=== PATIENT | female | born 1945 | race Two or more races ===

== ENCOUNTER 2017-01-05 11:54 | Inpatient (IN) | payer MEDICARE ==
[~2017-01-05] VITALS: Ht 149.9 cm; Wt 87.5 kg
[~2017-01-05 11:54] MED LIST: AMLO5TAB2 PO; AZIT250T6 PO; IBUP-1060 PO; LEVO750T31 PO; LINA5TAB PO; LISI-334 PO; OMEP20CA9 PO; VENTOLIN HFA18 GM INH
[2017-01-05] MEDS ORDERED: IPRATRPIUM/ALBUTEROL 0.5/2.5MG 3 ML NEBU. NEB ONE (13:00)
[2017-01-05 13:02] LABS: BASO % 0 % (0-3); EOS % 1 % (0-3); HEMATOCRIT 40.9 % (36.0-47.0); HEMOGLOBIN 13.3 g/dL (12.0-15.5); LYMPH # 1.2 x10^3/uL (1.0-4.8); LYMPH % 15 % (24-48); MEAN CORPUSCULAR HEMOGLOBIN 27 pg (25-35); MEAN CORPUSCULAR HGB CONC 33 g/dL (31-37); MEAN CORPUSCULAR VOLUME 84 fL (79-100); MONO % 3 % (0-9); NEUT % 80 % (31-73); PLATELET COUNT 195 x10^3/uL (140-400); RED BLOOD COUNT 4.87 x10^6/uL (3.50-5.40); RED CELL DISTRIBUTION WIDTH 14.3 % (11.5-14.5); WHITE BLOOD COUNT 7.9 x10^3/uL (4.0-11.0)
[2017-01-05 13:04] LABS: BILIRUBIN,URINE NEGATIVE (NEG); GLUCOSE,URINE NEGATIVE (NEG); NITRITE,URINE NEGATIVE (NEG); PH,URINE 5.5; PROTEIN,URINE 100 mg/dL (NEG-TRACE); UROBILINOGEN,URINE 0.2 mg/dL (0.2 mg/dL)
[2017-01-05 13:21] LABS: BACTERIA,URINE FEW /HPF (0-FEW); SQUAMOUS EPITHELIAL CELL,UR FEW /LPF
[2017-01-05 13:21] LABS: CALCIUM 9.2 mg/dL (8.5-10.1); CREATININE 0.8 mg/dL (0.6-1.0); GFR 70.7; POTASSIUM 4.4 mmol/L (3.5-5.1)
[2017-01-05 13:26] LABS: ALBUMIN 3.5 g/dL (3.4-5.0); ALBUMIN/GLOBULIN RATIO 0.7 (1.0-1.7); TOTAL BILIRUBIN 0.3 mg/dL (0.2-1.0); TOTAL PROTEIN 8.2 g/dL (6.4-8.2)
--- NOTE | 2017-01-05 13:28 | PHYS DOC ---
Past Medical History Past Medical History: GERD, Hypertension, Hypothyroid Additional Past Medical Histor: bipap at HS Past Surgical History: Appendectomy, Cholecystectomy Alcohol Use: None Drug Use: None Adult General Chief Complaint Chief Complaint: COUGH HPI HPI Patient is a 71 year old female who presents with complaint of shortness of breath and cough. Patient has been having symptoms for the past 2 days. Patient went to see her primary physician yesterday and was treated for bronchitis. Patient started on Levaquin and prednisone. Patient awoke with worsening symptoms today including headaches, subjective fever, chills, bodyaches, and productive cough. Patient states that her cough is productive of yellow sputum. Patient rates her discomfort currently is 8 out of 10. Patient states that she has had worsening dyspnea on exertion. Patient denies any history of COPD. Patient denies any nausea, vomiting, or diarrhea. Review of Systems Review of Systems Constitutional: Fever, chills, bodyaches [] Eyes: Denies change in visual acuity, redness, or eye pain [] HENT: Denies nasal congestion or sore throat [] Respiratory: Productive cough, shortness of breath [] Cardiovascular: Denies chest pain or edema [] GI: Denies abdominal pain, nausea, vomiting, bloody stools or diarrhea [] : Denies dysuria or hematuria [] Musculoskeletal: Myalgias, back pain [] Integument: Denies rash or skin lesions [] Neurologic: Headache, denies focal weakness or sensory changes [] Current Medications Current Medications Current Medications Medications (Trade) Dose Ordered Sig/Shadia Start Time Stop Time Status Last Admin Dose Admin Albuterol/ Ipratropium (Duoneb) 6 ml 1X ONCE 01/05/17 13:00 01/05/17 13:01 DC 01/05/17 12:55 6 ML Allergies Allergies Allergies Coded Allergies Type Severity Reaction Last Updated Verified Iodinated Contrast Media - Oral and Allergy Intermediate 03/16/14 Yes Penicillins Allergy Intermediate Rash 03/16/14 Yes acetaminophen Allergy Intermediate 05/12/16 Yes Physical Exam Physical Exam Constitutional: Alert, afebrile, appears in moderate discomfort. [] HENT: Normocephalic, atraumatic, bilateral external ears normal, oropharynx moist, no oral exudates, nose normal. [] Eyes: PERRLA, EOMI, conjunctiva normal, no discharge. [] Neck: Normal range of motion, no tenderness, supple, no stridor. [] Cardiovascular:Heart rate regular rhythm, no murmur [] Lungs & Thorax: Moderately restricted air movement bilaterally, expiratory wheezes bilaterally, no rales [] Abdomen: Bowel sounds normal, soft, no tenderness, no masses, no pulsatile masses. [] Skin: Warm, dry, no erythema, no rash. [] Back: No tenderness, no CVA tenderness. [] Extremities: No tenderness, no cyanosis, no clubbing, ROM intact, no edema. [] Neurologic: Alert and oriented X 3, normal motor function, normal sensory function, no focal deficits noted. [] Current Patient Data Vital Signs Vital Signs Date Time Temp Pulse Resp B/P Pulse Ox O2 Delivery O2 Flow Rate FiO2 01/05/17 13:44 88 21 184/86 93 Room Air 01/05/17 12:25 98.4 98.4 Lab Values Laboratory Tests Test 01/05/17 12:45 01/05/17 12:50 Urine Collection Type Unknown Urine Color Yellow Urine Clarity Clear Urine pH 5.5 Urine Specific Burson 1.010 Urine Protein 100mg/dL (NEG-TRACE) Urine Glucose (UA) Negativemg/dL (NEG) Urine Ketones (Stick) Negativemg/dL (NEG) Urine Blood Large (NEG) Urine Nitrite Negative (NEG) Urine Bilirubin Negative (NEG) Urine Urobilinogen Dipstick 0.2mg/dL (0.2 mg/dL) Urine Leukocyte Esterase Negative (NEG) Urine RBC 6-10/HPF (0-2) Urine WBC 1-4/HPF (0-4) Urine Squamous Epithelial Cells Few/LPF Urine Bacteria Few/HPF (0-FEW) Influenza Type A Antigen Negative (NEGATIVE) Influenza Type B Antigen Negative (NEGATIVE) White Blood Count 7.9x10^3/uL (4.0-11.0) Red Blood Count 4.87x10^6/uL (3.50-5.40) Hemoglobin 13.3g/dL (12.0-15.5) Hematocrit 40.9% (36.0-47.0) Mean Corpuscular Volume 84fL (79-100) Mean Corpuscular Hemoglobin 27pg (25-35) Mean Corpuscular Hemoglobin Concent 33g/dL (31-37) Red Cell Distribution Width 14.3% (11.5-14.5) Platelet Count 195x10^3/uL (140-400) Neutrophils (%) (Auto) 80% (31-73) H Lymphocytes (%) (Auto) 15% (24-48) L Monocytes (%) (Auto) 3% (0-9) Eosinophils (%) (Auto) 1% (0-3) Basophils (%) (Auto) 0% (0-3) Neutrophils # (Auto) 6.3x10^3uL (1.8-7.7) Lymphocytes # (Auto) 1.2x10^3/uL (1.0-4.8) Monocytes # (Auto) 0.3x10^3/uL (0.0-1.1) Eosinophils # (Auto) 0.1x10^3/uL (0.0-0.7) Basophils # (Auto) 0.0x10^3/uL (0.0-0.2) Sodium Level 141mmol/L (136-145) Potassium Level 4.4mmol/L (3.5-5.1) Chloride Level 104mmol/L (98-107) Carbon Dioxide Level 23mmol/L (21-32) Anion Gap 14 (6-14) Blood Urea Nitrogen 17mg/dL (7-20) Creatinine 0.8mg/dL (0.6-1.0) Estimated GFR (Cockcroft-Gault) 70.7 BUN/Creatinine Ratio 21 (6-20) H Glucose Level 193mg/dL (70-99) H Calcium Level 9.2mg/dL (8.5-10.1) Total Bilirubin 0.3mg/dL (0.2-1.0) Aspartate Amino Transferase (AST) 25U/L (15-37) Alanine Aminotransferase (ALT) 33U/L (14-59) Alkaline Phosphatase 98U/L (46-116) Creatine Kinase 98U/L (26-192) Creatine Kinase MB (Mass) 1.3ng/mL (0.0-3.6) Creatine Kinase MB Relative Index 1.3% (0-4) Troponin I Quantitative < 0.017ng/mL (0.000-0.055) DQ-Dre-V-Type Natriuretic Peptide 35pg/mL (0-124) Total Protein 8.2g/dL (6.4-8.2) Albumin 3.5g/dL (3.4-5.0) Albumin/Globulin Ratio 0.7 (1.0-1.7) L Laboratory Tests 01/05/17 12:50 Laboratory Tests 01/05/17 12:50 EKG EKG Interpreted by me: Heart rate 85, sinus rhythm, normal intervals, normal axis and in no acute ST/T-wave abnormalities present [] Radiology/Procedures Radiology/Procedures [facility] [address] [place] [address] IMAGING REPORT Signed PATIENT: PAULETTE ROSADO ACCOUNT: [id number] : 1945 LOCATION: ER AGE: 71 SEX: F EXAM STATUS: REG ER ORD. PHYSICIAN: MORENA THURSTON MD REASON: cough, shortness of breath PROCEDURE: CHEST PA & LATERAL PA and lateral chest radiographs 01/05/2017 Clinical history: Cough for 2 days with shortness of breath. PA and lateral digital radiographs of the chest were obtained. Comparison study is dated 05/15/2016. The cardiac silhouette is borderline enlarged. Atherosclerotic calcification of the thoracic aorta is seen. The thoracic aorta is mildly tortuous. Elevation of the right hemidiaphragm is noted. No acute pulmonary infiltrate is seen. No pleural effusion or pneumothorax is noted. Degenerative changes are seen involving the thoracic spine. A surgical clip is seen within the right upper quadrant of the abdomen consistent with a cholecystectomy. Impression: No acute abnormality is seen. DICTATED and SIGNED BY: JASON ROQUE MD DATE: 01/05/17 9017 CC: AUNG MUNIZ MD; MORENA THURSTON MD ~ [] Course & Med Decision Making Course & Med Decision Making Pertinent Labs and Imaging studies reviewed. (See chart for details) Patient was treated with DuoNeb treatments in the emergency department. On reevaluation the patient continues to display increased work of breathing and oxygen saturations were at 88%. The patient will require admission to the hospital for continued treatment of her reactive airway disease with hypoxia. Patient's chest x-ray was negative for pneumonia. I spoke with Dr. Hoffman who is on-call for Dr. Muniz. He accepted care of patient in hospital. Dragon Disclaimer Dragon Disclaimer This electronic medical record was generated, in whole or in part, using a voice recognition dictation system. Departure Departure Impression: Primary Impression: Acute respiratory distress Additional Impressions: Hypoxia Diabetes mellitus Disposition: 09 ADMITTED INPATIENT Admitting Physician: Edward Hoffman Condition: GUARDED Referrals: AUNG MUNIZ MD (PCP) Problem Qualifiers Additional Impressions: Diabetes mellitus Diabetes mellitus type: type 2 Diabetes mellitus complication status: with hyperglycemia Diabetes mellitus buttermaker insulin use: unspecified mcc insulin use status Qualified Code: E11.65 - Type 2 diabetes mellitus with hyperglycemia MORENA THURSTON MD Jan 05, 2017 13:28
[2017-01-05 13:35] LABS: CKMB INDEX 1.3 % (0-4); CKMB MASS 1.3 ng/mL (0.0-3.6)
[2017-01-05 13:43] LABS: OBC FLU VALID
--- NOTE | 2017-01-05 13:52 | RAD ---
PA and lateral chest radiographs 01/05/2017 Clinical history: Cough for 2 days with shortness of breath. PA and lateral digital radiographs of the chest were obtained. Comparison study is dated 05/15/2016. The cardiac silhouette is borderline enlarged. Atherosclerotic calcification of the thoracic aorta is seen. The thoracic aorta is mildly tortuous. Elevation of the right hemidiaphragm is noted. No acute pulmonary infiltrate is seen. No pleural effusion or pneumothorax is noted. Degenerative changes are seen involving the thoracic spine. A surgical clip is seen within the right upper quadrant of the abdomen consistent with a cholecystectomy. Impression: No acute abnormality is seen.
--- NOTE | 2017-01-05 14:07 | EKG ---
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
[2017-01-05] MEDS ORDERED: FENTANYL PF 100 MCG/2 ML VIAL. IV PRN (15:45)
[2017-01-05] MEDS ORDERED: ONDANSETRON PF 4 MG/2 ML VIAL. IV PRN (15:45)
[2017-01-05 16:10] VITALS: BP 140/68
[2017-01-05] MEDS ORDERED: DEXTROSE 50% 25 GM / 50ML DISP.SYRIN. IV PRN (17:30)
[2017-01-05] MEDS: IV NORMAL SALINE 1000ML BAG 1,000 ML IV SCH (18:03)
[2017-01-05] MEDS: methylPREDNISolone SOD SUCC PF 40 MG/ML VIAL. IV SCH (18:03)
--- NOTE | 2017-01-05 18:10 | ACF ---
Admission Forms Criteria GENERAL ADMISSION CRITERIA (Place 'X' for any and all applicable criteria): Admission is indicated for ANY ONE of the following: [ ]I. Hemodynamic instability as indicated by ANY ONE of the following(1)(2) (3)(4)(5): [ ]a) Vital sign abnormality not readily corrected by appropriate treatment within 12 to 24 hours indicated by ANY ONE of the following: [ ]i) Hypotension [ ]ii) Symptomatic Tachycardia unresponsive to treatment (eg , analgesia, fluids, sedation as indicated) [ ]iii) Orthostatic vital sign changes unresponsive to treatment (eg, fluids) [ ]b) Vital sign abnormality that is severe indicated by ANY ONE of the following: [ ]i) Inadequate perfusion indicated by ANY ONE of the following: [ ]1) Lactic acidosis (greater than 2 mmol/L) [ ]2) New abnormal capillary refill (greater than 3 seconds) [ ]3) Other metabolic acidosis (arterial pH less than 7.35) not otherwise explained [ ]4) Reduced urine output [ ]5) Altered mental status [ ]6) Myocardial Ischemia [ ]v) Mean arterial pressure[A] less than 60 mm Hg [ ]vi) Mean arterial pressure[A] less than 70 mm Hg after 30 minutes of appropriate treatment (eg, fluid resuscitation) [ ]vii) IV inotropic or vasopressor medication required to maintain adequate blood pressure or perfusion [ ]viii) Sustained heart rate greater than 120 beats per minute in adult or child 6 years or older[B]] [ ]II. Hypertension requiring inpatient treatment as indicated by ANY ONE of the following(6)(7)(8): [ ]a) SBP greater than 220 mm Hg or DBP greater than 120 mm Hg despite treatment [ ]b) SBP greater than 140 mm Hg or DBP greater than 100 mm Hg with evidence of acute end organ damage as indicated by ANY ONE of the following: [ ]i) Encephalopathy [ ]ii) Acute renal failure as indicated by new onset of ANY ONE of the following(9)(10)(11)(12)(13): [ ]1) A 3-fold rise in serum creatinine from baseline [ ]2) Serum creatinine greater than 4 mg/dL ( 354 micromoles/L) with acute rise greater than 0.5 mg/dL (44.2 micromoles/L) [ ]3) Reduction of more than 75% in estimated glomerular filtration rate from baseline [ ]4) Estimated glomerular filtration rate less than 35 mL/min/1.73m2 (0.59 mL/sec/1.73m2) in child up to 18 years of age [ ]5) Cessation of urine output indicated by ALL of the following: [ ]A. Adequate volume status [ ]B. Inadequate urine output as indicated by ANY ONE of the following: [ ]a. Urine output less than 0.3 mL/kg/hr for 24 hours [ ]b. Anuria (urine output less than 0.1 mL/kg/hr) for 12 hours [ ]iii) Aortic dissection [ ]iv) Myocardial ischemia [ ]v) Left ventricular heart failure [ ]vi) Retinal hemorrhage [ ]vii) Other significant finding [ ]c) Hypertension in child requiring inpatient treatment as indicated by ALL of the following(14)(15)(16): [ ]i) Outpatient treatment not effective, not available, or not appropriate [ ]ii) SBP or DBP greater than 95th percentile for age [ ]iii) Evidence of acute end organ damage as indicated by ANY ONE of the following: [ ]1) Altered mental status [ ]2) Acute renal failure as indicated by new onset of ANY ONE of the following(9)(10)(11)(12)(13): [ ]A. A 3-fold rise in serum creatinine from baseline [ ]B. Serum creatinine greater than 4 mg/dL (354 micromoles/L) with acute rise greater than 0.5 mg/dL (44.2 micromoles/L) [ ]C. Reduction of more than 75% in estimated glomerular filtration rate from baseline [ ]D. Estimated glomerular filtration rate less than 35 mL/min/1.73m2 (0.59 mL/sec/1.73m2)in child up to 18 years of age [ ]E. Cessation of urine output indicated by ALL of the following: [ ]a. Adequate volume status [ ]b. Inadequate urine output as indicated by ANY ONE of the following: [ ]1) Urine output less than 0.3 mL/kg/hr for 24 hours [ ]2) Anuria (urine output less than 0.1 mL/kg/hr) for 12 hours [ ]3) Severe headache [ ]4) Visual disturbance [ ]5) Retinal hemorrhage [ ]6) Other significant finding [ ]III. Acute cardiac or peripheral ischemia as indicated by ANY ONE of the following: [ ]a) Acute coronary syndrome(17)(18) [ ]b) Acute peripheral ischemia (eg, pulseless, cool, mottled, or cyanotic extremity)(19) [ ]IV. Cardiac arrhythmias or findings of immediate concern indicated by ANY ONE of the following(20)(21): [ ]a) Heart rhythms that are inherently dangerous or unstable indicated by ANY ONE of the following(22)(23)(24): [ ]i) Resuscitated ventricular fibrillation or cardiac arrest [ ]ii) Ventricular escape rhythm [ ]iii) Sustained ventricular tachycardia (30 seconds or more of ventricular rhythm at greater than 100 beats per minute) [ ]iv) Nonsustained ventricular tachycardia and ANY ONE of the following: [ ]1) Suspected cardiac ischemia as cause or consequence of ventricular tachycardia [ ]2) In setting of acute myocarditis [ ]b) Unstable cardiac conduction defects indicated by ANY ONE of the following(24)(25)(26): [ ]i) Type II second-degree atrioventricular block [ ]ii) Third-degree atrioventricular block [ ]iii) New-onset left bundle branch block with suspected myocardial ischemia [ ]c) Any heart rhythm and ANY ONE of the following(22)(23)(27)(28)( 29): [ ] i) Continuous long-term ECG monitoring needed (eg, initiation of drug requiring monitoring for more than 24 hours) [ ] ii) Patient has automatic implanted cardioverter defibrillator that is repeatedly firing, malfunctioning, or in need of immediate adjustment of settings beyond the scope of ambulatory or observation care. [ ]d) Heart rhythms of concern due to ANY ONE of the following: [ ]i) Hypotension [ ]ii) Respiratory distress [ ]iii) Association with other significant symptoms (eg, bradycardia with syncope or ongoing dizziness, supraventricular tachycardia with chest pain) (27)(28) (30) [ ] V. Severe heart failure as indicated by ANY ONE of the following ( 31)(32): [ ]a) Respiratory distress [ ]b) Hypotension [ ]c) Anasarca (refractory to outpatient therapy) [ ]d) Cardiac arrhythmias of immediate concern [ ]e) Myocardial ischemia [X]. Respiratory abnormalities, including ANY ONE of the following(33)(34) (35)(36): [ ]a) Respiratory rate greater than 30 breaths per minute unresponsive to treatment [A] [X]b) New saturation of arterial oxygen less than 90% [ ]c) New partial pressure of carbon dioxide greater than 44 mm Hg ( 5.9 kPa) [ ]d) Supplemental oxygen or respiratory treatments needed that are new or not performable at other levels of care [ ]e) New-onset cyanosis [ ]f) Inability to protect airway [ ]g) Chronic lung disease with severe deterioration (not responsive to emergency and observation care treatment as appropriate) as indicated by ANY ONE of the following(34)(36 ): [ ]i) SaO2 5% below baseline in patient with chronic hypoxemia [ ]ii) New requirement for supplemental oxygen to keep SaO2 at baseline or acceptable level [ ]iii) Required supplemental oxygen performable only in acute inpatient setting [ ]iv) Severe airflow or ventilation abnormalities [ ]v) Previously mobile patient unable to walk between rooms [ ]vi Inability to eat or sleep due to dyspnea [ ]vii) Rapid rate of exacerbation onset [ ]viii) Altered mental status ]VII. Severe airflow or ventilation abnormalities (not responsive to emergency and observation care treatment as appropriate) as indicated by ANY ONE of the following(33)(34)(35)(37): [ ]a) PCO2 greater than 42 mm Hg (5.6 kPa) and pH less than 7.35 (new ) [ ]b) Documented PCO2 increased more than 5 mm Hg (0.7 kPa) from disease baseline [ ]c) Airflow measurements [B] less than 60% of previous best or predicted (eg, peak expiratory flow rate less than 300 L/minute) despite intensive emergent treatment [C] [ ]d) Required respiratory treatments that are performable only in acute inpatient setting [ ]VIII. Impending or actual respiratory arrest ( Also use Respiratory Failure GRG for severe respiratory disease and long-term mechanical ventilation patients) [ ]IX. Neurologic abnormalities, including ANY ONE of the following: [ ]a) New findings that suggest ANY ONE of the following: [ ]i) [employer] infection(38) [ ]ii) Cerebral bleeding, ischemia, or vasospasm(39)(40) [ ]iii) Increased intracranial pressure, hydrocephalus, or cerebral edema(41)(42)(43) [ ]iv) Spinal cord injury(44) [ ]b) Uncontrolled seizures(45) [ ]c) New-onset coma (eg, Geraldine coma scale score less than 9) or unexplained abnormal mental status (eg, Geraldine coma scale score less than 14) [D](41)(46)(47) [ ]X. New-onset severe neurologic findings requiring inpatient care; examples include(42)(48)(49): [ ]a) Papilledema [ ]b) Cerebral edema [ ]c) Mass effect on CT scan [ ]XI. Suspected acute intra-abdominal process with peritoneal signs, abdominal mass, or similar findings (50)(51)(52) [ ]XII. Severe physiologic disorder remaining after emergency or observation level care (as appropriate) as indicated by ANY ONE of the following (53): [ ]a) Significant dehydration [ ]b) Diabetic ketoacidosis [ ]c) Hyperglycemic hyperosmolar state (eg, osmolality greater than 320 mOsm/kg (mmol/kg) [ ]d) Hypoglycemia [ ]e) Other (new) acid-base disorder with pH less than 7.35 or greater than 7.5(54) [ ]f) Thyroid storm (55) [ ]g) Myxedema coma (55) [ ]XIII. Abdominal abnormalities with ANY ONE of the following(56)(57): [ ]a) Absent bowel sounds with complete ileus [ ]b) Signs of intestinal obstruction or peritonitis [E] [ ]c) Nausea and vomiting that cannot be controlled with outpatient or observation care [ ]XIV. Acute renal failure as indicated by new onset of ANY ONE of the following(9)(10)(11)(12)(13): [ ]a) A 3-fold rise in serum creatinine from baseline [ ]b) Serum creatinine greater than 4 mg/dL (354 micromoles/L) with acute rise greater than 0.5 mg/dL (44.2 micromoles/L) [ ]c) Reduction of more than 75% in estimated glomerular filtration rate from baseline [ ]d) Estimated glomerular filtration rate less than 35 mL/min/ 1.73m2 (0.59 mL/sec/1.73m2) in child up to 18 years of age [ ]e) Cessation of urine output indicated by ALL of the following: [ ]i) Adequate volume status [ ]ii) Inadequate urine output as indicated by ANY ONE of the following: [ ]1) Urine output less than 0.3 mL/kg/hr for 24 hours [ ]2) Anuria (urine output less than 0.1 mL/kg/hr) for 12 hours [ ]XV. Significant uremic complications as indicated by ANY ONE of the following(58)(59)(60): [ ]a) Outpatient therapy is ineffective or not feasible for ANY ONE of the following: [ ]i) Severe heart failure [ ]ii) Severehypertension [ ]iii) Pleural effusion [ ]iv) Pericarditis or pericardial effusion [ ]b) Cardiac arrhythmias of immediate concern [ ]c) Intractable nausea or vomiting [ ]d) Recurrent seizures [ ]e) Encephalopathy [ ]f) Bleeding abnormalities (eg, platelet dysfunction) with active (eg, gastrointestinal) bleeding [ ]g) Dialysis indicated before long-term access or ambulatory arrangements can be made [ ]h) Significant metabolic or electrolyte abnormalities (eg, severe acidosis or hyperkalemia) [ ]XVI. High fever or other high-risk infection situation as indicated by ANY ONE of the following(61)(62)(63)(64): [ ]a) Outpatient and observation care antimicrobial treatment unavailable, not effective, or not appropriate [ ]b) Documented bacteremia [ ]c) Temperature greater than 40.5 degrees C (104.9 degrees F) ( oral) [ ]d) Temperature greater than 39.5 degrees C (103.1 degrees F) ( oral) or less than 36 degrees C (96.8 degrees F) (rectal) that does not respond to e treatment and observation care [ ] XVII. Temperature less than 95 degrees F (35 degrees C)(rectal)(65) [ ] XVIII. Severe nutritional abnormalities as indicated by ALL of the following (66)(67): [ ]a) Inability to tolerate or establish sufficient oral or other enteral nutrition in outpatient setting [ ]b) Parenteral nutrition regimen need that must be implemented on inpatient basis [ ] XIX. Severe electrolyte abnormalities indicated by ALL of the following(68) (69)(70): [ ]a) Electrolytes and associated findings are not as expected for patient baseline or acceptable treatment effects. [ ]b) Severe abnormalities indicated by ANY ONE of the following: [ ]i) Sodium less than 130 mEq/L (mmol/L) (new) [ ]ii)Sodium less than 135 mEq/L (mmol/L) with ANY ONE of the following: [ ]1) Uncorrectable (to near normal or chronic baseline) after trial of outpatient and emergency treatment [ ]2) Altered mental status [ ]3) Seizures [ ]4) Severe medical etiology requiring inpatient management (eg, heart failure, hypovolemia) [ ]iii) Sodium greater than 155 mEq/L (mmol/L) [ ]iv) Sodium greater than 150 mEq/L (mmol/L) with ANY ONE of the following: [ ]1) Uncorrectable (to near normal or chronic baseline) with outpatient and emergency treatment [ ]2) Altered mental status [ ]3) Seizures [ ]4) Severe medical etiology (eg, hypovolemia, diabetes insipidus) [ ]v) Potassium less than 2.5 mEq/L (mmol/L) despite outpatient and emergency treatment [ ]vi) Potassium less than 3 mEq/L (mmol/L) with ANY ONE of the following: [ ]1) Weakness [ ]2) Cardiac abnormality (eg, arrhythmia, conduction disturbance) [ ]3) Cardiac ischemia [ ]4) Ileus [ ]5) Ongoing medical cause requiring inpatient management (eg, acute renal wasting or SIADH) [ ]6) Other severe symptoms [ ]vii) Potassium greater than 6.5 mEq/L (mmol/L) [ ]viii) Potassium greater than 5 mEq/L (mmol/L) with ANY ONE of the following: [ ]1) Uncorrectable (to near normal or chronic baseline) with outpatient and emergency treatment [ ]2) Severe ECG findings [F] [ ]3) Acute worsening of renal failure (creatinine greater than 2.5 mg/dL (221 micromoles/L) or significant elevation for age and size) [ ]4) Severe weakness [ ]5) Severe medical etiology (eg, hemolysis, infection, drug overdose) [ ]ix) Calcium less than 7 mg/dL (1.75 mmol/L) despite outpatient and emergency treatment (72) [ ]x) Calcium less than 8 mg/dL (2 mmol/L) with significant symptoms or findings; examples include(72): [ ]1) Altered mental status [ ]2) Muscle spasms [ ]3) Seizures [ ]4) Breathing difficulty [ ]5) Cardiac abnormality (eg, arrhythmia or conduction disturbance) [ ]xi) Calcium greater than 14 mg/dL (3.5 mmol/L)(72) [ ]xii) Calcium greater than 12 mg/dL (3 mmol/L) with ANY ONE of the following(72): [ ]1) Uncorrectable (to near normal or chronic baseline) with outpatient and emergency treatment [ ]2) Significant dehydration or hypovolemia as indicated by ALL of the following(70)(73)(74): [ ]A. Not resolved with initial treatments [ ]B. Clinically significant dehydration as indicated by ANY ONE of the following: [ ]a. Vomiting refractory to outpatient treatment (ie, precluding oral rehydration) [ ]b. Inability to drink [ ]c. Hypernatremia or other electrolyte abnormality unable to be corrected with outpatient and emergency treatment [ ]d. Failure to remain hydrated with outpatient therapy [ ]e. Reduced urine output [ ]f. Hypotension [ ]g. Serious cause for dehydration requiring acute hospitalization (eg, bowel obstruction, increased intracranial pressure, infectious cause) [ ]h. Child with ANY ONE of the following(75): [ ]1) Severe abdominal tenderness [ ]2) Adequate care not available at home [ ]3) Severe dehydration ( greater than 9% loss of body weight) [ ]4) Significant symptoms or findings; examples include: [ ]A. Altered mental status [ ]B. Cardiac abnormality (eg, arrhythmia, conduction disturbance) [ ]C. Malignant etiology requiring inpatient treatment [ ]xiii) Phosphorus less than 1 mg/dL (0.32 mmol/L) [ ]xiv) Phosphorus less than 1.5 mg/dL (0.48 mmol/L) with ANY ONE of the following: [ ]1) Patient unresponsive to outpatient and emergency treatment [ ]2) Significant symptoms or findings; examples include: [ ]A. Weakness [ ]B. Altered mental status [ ]C. Breathing difficulty [ ]D. Seizures [ ]E. Rhabdomyolysis [ ]xv) Phosphorus greater than 10 mg/dL (3.2 mmol/L) [ ]xvi) Phosphorus greater than 4.5 mg/dL (1.45 mmol/L) (new) with ANY ONE of the following: [ ]1) Severe medical etiology (eg, crush injury, acute renal failure) [ ]2) Associated hypocalcemia with significant findings; examples include: [ ]A. Neurologic symptoms [ ]B. Altered mental status [ ]C. Muscle spasms [ ]D. Seizures [ ]E. Breathing difficulty [ ]F. Cardiac abnormality (eg, arrhythmia, conduction disturbance) [ ]xvii) Magnesium less than 1 mg/dL (0.41 mmol/L) [ ]xviii) Magnesium less than 1.5 mg/dL (0.62 mmol/L) with ANY ONE of the following: [ ]1) Patient unresponsive to outpatient and emergency treatment [ ]2) Associated hypocalcemia with significant findings; examples include: [ ]A. Altered mental status [ ]B. Muscle spasms [ ]C. Seizures [ ]D. Breathing difficulty [ ]E. Cardiac abnormality (eg, arrhythmia , conduction disturbance) [ ]3) Associated hypokalemia (potassium less than 3 mEq/L (mmol/L)) with risk of arrhythmia [ ]xix) Magnesium greater than 4 mEq/L (2 mmol/L) [ ]xx) Magnesium greater than 2.5 mEq/L (1.25 mmol/L) with significant symptoms or findings; examples include: [ ]1) Weakness [ ]2) Altered mental status [ ]3) Cardiac abnormality (eg, arrhythmia, conduction disturbance) [ ]4) Breathing difficulty [ ]5) Severe medical etiology (eg, renal failure, hypovolemia) [ ]xxi) Uric acid greater than 20 mg/dL (1190 micromoles/L)(76) [ ]xxii) Uric acid greater than 8 mg/dL (476 micromoles/L) with significant symptoms or findings of tumor lysis syndrome; examples include(76): [ ]1) Creatinine greater than 1.5 times upper limit of normal [ ]2) Cardiac abnormality (eg, arrhythmia, conduction disturbance) [ ]3) Seizure [ ]XX. Acute blood loss causing significant abnormality as indicated by ANY ONE of the following(77)(78): [ ]a) Hemoglobin less than 10 g/dL (100 g/L) (not baseline) [ ]b) Hematocrit less than 30% (0.30) (not baseline) [ ]c) Repeat hematocrit decreased more than 2% (0.02) [ ]d) Uncontrolled bleeding [ ]XXI. Severe anemia indicated by ANY ONE of the following(78)(79): [ ]a) Altered mental status [ ]b) Chest pain [ ]c) Exertional dyspnea [ ]d) Syncope [ ]e) Other findings suggesting inadequate perfusion [ ]f) Treatment with transfusion or volume replacement is ineffective at resolving ANY ONE of the following [G]: [ ]i) Tachycardia for age [ ]ii) Orthostatic vital sign changes as indicated by ANY ONE of the following(80): [ ]1) Fall in SBP of 20 mm Hg or more 1 to 3 minutes after patient sits or stands from recumbent position [ ]2) Fall in DBP of 10 mm Hg or more 1 to 3 minutes after patient sits or stands from recumbent position [ ]XXII. High-risk low platelet count as indicated by ANY ONE of the following( 81)(82): [ ]a) Severe or life-threatening bleeding (eg, intracranial, major gastrointestinal, or extensive mucosal bleeding), with any reduced platelet count [ ]b) Platelet count less than 20,000/mm3 (20 x109/L) with any active bleeding [ ]c) Platelet count less than 10,000/mm3 (10 x109/L) with minor purpura or petechiae [ ]d) Platelet count less than 5000/mm3 (5 x109/L) [ ]e) Low platelet count with hemolytic anemia [ ]XXIII. Disseminated intravascular coagulation(77)(83) [ ]XXIV. Severe adverse drug or systemic toxin reaction requiring inpatient treatment; examples include(84)(85): [ ]a) Serotonin syndrome(86) [ ]b) Neuroleptic malignant syndrome(86) [ ]c) Cholinergic syndrome with severe symptoms (eg, bronchorrhea, weakness, mental status changes, seizures) [ ]d) Sympathetic syndrome with severe symptoms (eg, seizures, mental status changes, cardiac dysrhythmias) [ ]e) Anticholinergic syndrome [ ]XXV. Severe pain requiring acute inpatient management as indicated by ALL of the following (87)(88)(89): [ ]a) Continuous or frequent (eg, every 2 to 4 hours) parenteral analgesics required [H] [ ]b) Rapid improvement expected from treatment or acute intervention (eg, surgery, anesthesia procedure) [ ]XXVI.Severe behavioral health issues judged unmanageable at a lower level of care (eg, residential) in a patient who is ANY ONE of the following(91) [ ]a) Acutely suicidal [ ]b) A danger to self (eg, self-mutilating or suicidal behavior) [ ]c) A danger to others (eg, assaultive or homicidal behavior) [ ]d) Incapacitated because of grave disability (eg, inability to provide for self at lower level of care) (92) [ ]XXVII. Inpatient monitoring needed; examples include(1)(3)(87)(93)(94)(95)(96 ): [ ]a) Vital signs, neurologic signs, or vascular checks more frequently than every 4 hours [ ]b) Cardiac or respiratory monitoring beyond the scope (eg, over 24 hours) of observation care [ ]c) Pulmonary artery catheter monitoring [ ]d) Suspected compartment syndrome(97) (98) [ ]e) Cerebral bleeding, hydrocephalus, or vasospasm monitoring [ ]f) Increased intracranial pressure or cerebral edema monitoring [ ]g) monitoring [ ]XXVIII. Treatment requiring inpatient care; examples include: [ ]a) IV fluid to replace significant ongoing losses (greater than 3 L/m2 per day)(53) [ ]b) High concentration oxygen (greater than 40%)(33)(99)(100) [ ]c) Frequent respiratory therapy (more frequently than every 4 hours) to maintain airflow rates greater than 60% of baseline(33)(99)(100) [ ]d) Epidural analgesia(87) [ ]e) IV anticoagulation, vasoactive, or antiarrhythmic medication(19 )(23) [ ]f) Acute thrombolytics (generally require 24 hours of observation )(101)(102) [ ]XXIX. Emergency procedures needed; examples include: [ ]a) Emergency inpatient surgery [ ]b) Temporary pacemaker placement(103) [ ]c) Chest tube placement with active evacuation (eg, suction, drainage)(104) [ ]d) Emergent cardioversion(105) [ ]e) Emergent cardiac or vascular procedures (eg, cardiac catheterization, angioplasty) (17)(18) [ ]f) Emergent dialysis access placement and institution(10)(106) [ ]g) Emergent pericardiocentesis(107) [ ]h) Emergent plasmapheresis or leukapheresis(83) [ ]i) Emergent tracheostomy The original [employer] content created by [employer] has been revised. The portions of the content which have been revised are identified through the use of italic text or in bold, and [facility] [employer] has neither reviewed nor approved the modified material. All other unmodified content is copyright [employer]. Please see references footnoted in the original [employer] edition 2016 Admission Criteria Met?: Yes LIGIA ELIAS Jan 05, 2017 18:10
[2017-01-05] MEDS: INSULIN ASPART 300 UNITS/3 ML INSULN.PEN SQ SCH (18:37)
[2017-01-05 19:00] VITALS: BP 156/85
[2017-01-05] MEDS ORDERED: CHOL10003 PO (20:14)
[2017-01-05] MEDS ORDERED: ASPI-482 PO (20:14)
[2017-01-05] MEDS: IPRATRPIUM/ALBUTEROL 0.5/2.5MG 3 ML NEBU. NEB SCH (20:29)
[2017-01-05] MEDS: LISINOPRIL 20 MG TABLET PO SCH (21:00)
[2017-01-05] MEDS: AMLODIPINE BESYLATE 5 MG TABLET PO SCH (21:00)
[2017-01-05] MEDS ORDERED: INSULIN ASPART 300 UNITS/3 ML INSULN.PEN SQ ONE (22:00)
[2017-01-05 23:00] VITALS: BP 165/77
[2017-01-06] VITALS (7 sets, daily range): BP systolic 159–189; BP diastolic 68–86
[2017-01-06] MEDS: methylPREDNISolone SOD SUCC PF 40 MG/ML VIAL. IV SCH ×3 (00:28→17:23)
[2017-01-06] MEDS: IV NORMAL SALINE 1000ML BAG 1,000 ML IV SCH (02:00)
[2017-01-06 03:45] LABS: BASO % 0 % (0-3); EOS % 0 % (0-3); HEMATOCRIT 36.7 % (36.0-47.0); HEMOGLOBIN 12.1 g/dL (12.0-15.5); LYMPH # 1.2 x10^3/uL (1.0-4.8); LYMPH % 21 % (24-48); MEAN CORPUSCULAR HEMOGLOBIN 27 pg (25-35); MEAN CORPUSCULAR HGB CONC 33 g/dL (31-37); MEAN CORPUSCULAR VOLUME 82 fL (79-100); MONO % 3 % (0-9); NEUT % 76 % (31-73); PLATELET COUNT 194 x10^3/uL (140-400); RED BLOOD COUNT 4.47 x10^6/uL (3.50-5.40); WHITE BLOOD COUNT 5.4 x10^3/uL (4.0-11.0)
[2017-01-06 03:53] LABS: CALCIUM 8.9 mg/dL (8.5-10.1); CREATININE 0.9 mg/dL (0.6-1.0); GFR 61.7; POTASSIUM 4.2 mmol/L (3.5-5.1)
[2017-01-06] MEDS: IPRATRPIUM/ALBUTEROL 0.5/2.5MG 3 ML NEBU. NEB SCH ×4 (07:37→19:27)
--- NOTE | 2017-01-06 08:16 | PDOC ---
Provider Note Provider Note [id number] SARAH SALGADO MD Jan 06, 2017 08:16
[2017-01-06] MEDS ORDERED: INSULIN DETEMIR 300 UNITS/3 ML INSULN.PEN. SQ ONE (08:30)
[2017-01-06] MEDS: LINAGLIPTIN 5 MG TABLET PO SCH (08:59)
[2017-01-06] MEDS: AMLODIPINE BESYLATE 5 MG TABLET PO SCH (08:59)
[2017-01-06] MEDS: LEVOFLOXACIN 500 MG TABLET PO SCH (08:59)
[2017-01-06] MEDS: PANTOPRAZOLE 40 MG TABLET. PO SCH (09:00)
[2017-01-06] MEDS: CHOLECALCIFEROL (VITAMIN D3) 1,000 UNIT TABLET PO SCH (09:00)
[2017-01-06] MEDS: ASPIRIN ENTERIC COATED 81 MG TABLET.DR. PO SCH (09:00)
[2017-01-06] MEDS: LISINOPRIL 20 MG TABLET PO SCH (09:00)
--- NOTE | 2017-01-06 09:08 | HP ---
ADMIT DATE: 01/05/2017 CHIEF COMPLAINT: Difficulty breathing. HISTORY OF PRESENT ILLNESS: A 71-year-old female, patient of Dr. Pryor and Dr. Muniz, with history of diabetes, who came in with increasing cough and sputum production over the last 3-4 days. She was seen in Dr. Muniz's office and put on prednisone and Levaquin the day prior to admission and failed to improve. Chest x-ray did not show any acute changes. Laboratory studies were unremarkable. She is feeling somewhat better at this time. MEDICATIONS: Include Tradjenta for diabetes and blood pressure medications. ALLERGIES: SHE IS ALLERGIC TO PENICILLIN AND TYLENOL. SOCIAL HISTORY: Nonsmoker, , not physically active, nondrinker. FAMILY HISTORY: Unremarkable. REVIEW OF SYSTEMS: No other complaints. OBJECTIVE: ENT: All within normal limits. NECK: No masses, nodes or thyroid enlargement. LUNGS: Very faint expiratory wheezes. No tachypnea or prolonged expiratory phase. No cough. CARDIOVASCULAR: Regular rate. No irregular beat, murmur or tachycardia. ABDOMEN: Soft, obese, benign and nontender. EXTREMITIES: Good pedal and radial pulses. No edema. No joint or skin lesions or clubbing. NEUROLOGIC: Physiologic, nonfocal, oriented x 4. ASSESSMENT: Asthma exacerbation, likely underlying secondary bronchitis, viral or bacterial is unclear. Type 2 diabetes, level of control unclear, last A1c 8.5 eight months ago. PLAN: Continue steroids at a lower dose. Oral Levaquin and respiratory treatments for now. SARAH SALGADO MD DR: ALYCIA/varinder JOB#: [id number] / [id number]
[2017-01-06] MEDS: INSULIN ASPART 300 UNITS/3 ML INSULN.PEN SQ SCH ×3 (09:10→17:26)
--- NOTE | 2017-01-06 11:15 | PDOC ---
Provider Note Provider Note dictated VERNON OCAMPO MD Jan 06, 2017 11:15
--- NOTE | 2017-01-06 11:41 | CONS ---
DATE OF CONSULTATION: ATTENDING PHYSICIAN: Dr. Edward Hoffman. REASON FOR CONSULTATION: Cough. HISTORY OF PRESENT ILLNESS: The patient is a 71-year-old female who is morbidly obese and has obstructive sleep apnea on home CPAP. She came to the hospital complaining of cough, which has been occasionally productive of light colored sputum. This has been going on for 3-4 days. No obvious fevers. She was placed on oral prednisone and oral Levaquin and she feels improved. She was seen in the Emergency Room as a result, she was hospitalized. I have reviewed the patient's chest x-ray shows chronically elevated right hemidiaphragm without any acute infiltrates. She states she did smoke during her teenage years for about 25 years before quitting many years ago. She said she was told that she was wheezing in the ER. PAST MEDICAL HISTORY: Significant for history of morbid obesity and obstructive sleep apnea on home CPAP. PAST SURGICAL HISTORY: No recent surgeries. ALLERGIES: IODINATED CONTRAST, ORAL AND IV PENICILLINS ____. REVIEW OF SYSTEMS: Twelve-point system obtained. Pertinent positives discussed in history of present illness, otherwise noncontributory. All systems that were negative were reviewed as well. MEDICATIONS: Reviewed as listed in the MRAD including IV steroids, DuoNebs. PHYSICAL EXAMINATION: VITAL SIGNS: Blood pressure 184/86 which is high, afebrile, pulse ox 95% on 2 liters. NECK: Supple. LUNGS: Diminished breath sounds with few rhonchi. CARDIOVASCULAR: Regular rate and rhythm. ABDOMEN: Soft, nontender. EXTREMITIES: With no pitting edema. LABORATORY DATA: Reviewed. Influenza was negative. BUN 17, creatinine 0.9. White cell count 5.4, hemoglobin 12.1. IMPRESSION: 1. Acute bronchitis, but no definite consolidation seen on the chest x-ray. 2. 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 No further workup is needed. 3. Possible adult onset reactivate airway disease with mild exacerbation, triggered by viral bronchitis. RECOMMENDATIONS: 1. Continue with present bronchodilators. 2. Taper steroids. 3. Continue empiric antibiotic. 4. Cough suppressants. 5. If the cough does not resolved after few weeks, then one should consider the effect of lisinopril which currently she is on. She could be discharged in the next 24 hours. VERNON OCAMPO MD DR: Dariana JOB#: [id number] / [id number] KEYON
[2017-01-06] MEDS ORDERED: INSULIN ASPART 300 UNITS/3 ML INSULN.PEN SQ STA (13:58)
[2017-01-06] MEDS ORDERED: CLONIDINE HCL 0.1 MG TABLET PO PRN (16:30)
[2017-01-06] MEDS ORDERED: CLONIDINE HCL 0.1 MG TABLET PO ONE (16:45)
[2017-01-07 03:17] VITALS: BP 170/80
[2017-01-07] MEDS: LEVOFLOXACIN 500 MG TABLET PO SCH (05:51)
[2017-01-07 07:00] VITALS: BP 154/82
[2017-01-07] MEDS: IPRATRPIUM/ALBUTEROL 0.5/2.5MG 3 ML NEBU. NEB SCH ×4 (07:55→19:51)
[2017-01-07] MEDS: PANTOPRAZOLE 40 MG TABLET. PO SCH (08:10)
[2017-01-07] MEDS: INSULIN ASPART 300 UNITS/3 ML INSULN.PEN SQ SCH (08:13)
[2017-01-07] MEDS: ASPIRIN ENTERIC COATED 81 MG TABLET.DR. PO SCH (08:56)
[2017-01-07] MEDS: AMLODIPINE BESYLATE 5 MG TABLET PO SCH (08:57)
[2017-01-07] MEDS: LISINOPRIL 20 MG TABLET PO SCH (08:58)
[2017-01-07] MEDS: CHOLECALCIFEROL (VITAMIN D3) 1,000 UNIT TABLET PO SCH (08:58)
[2017-01-07] MEDS: LINAGLIPTIN 5 MG TABLET PO SCH (08:58)
--- NOTE | 2017-01-07 08:58 | PDOC ---
PULMONARY PROGRESS NOTES Subjective less cough, feels better Vitals Vital Signs Date Time Temp Pulse Resp B/P Pulse Ox O2 Delivery O2 Flow Rate FiO2 01/07/17 07:57 94 Room Air 01/07/17 03:17 96.3 82 16 170/80 96.3 01/06/17 20:00 2.0 General: Alert, Oriented X4, No acute distress Lungs: Other (decrease bs) Cardiovascular: S1, S2 Abdomen: Soft, Non-tender Extremities: No Edema Skin: Warm Labs Laboratory Tests Test 01/05/17 12:45 01/05/17 12:50 01/05/17 16:23 01/05/17 20:53 Urine Collection Type Unknown Urine Color Yellow Urine Clarity Clear Urine pH 5.5 Urine Specific [place] 1.010 Urine Protein 100mg/dL (NEG-TRACE) Urine Glucose (UA) Negativemg/dL (NEG) Urine Ketones (Stick) Negativemg/dL (NEG) Urine Blood Large (NEG) Urine Nitrite Negative (NEG) Urine Bilirubin Negative (NEG) Urine Urobilinogen Dipstick 0.2mg/dL (0.2 mg/dL) Urine Leukocyte Esterase Negative (NEG) Urine RBC 6-10/HPF (0-2) Urine WBC 1-4/HPF (0-4) Urine Squamous Epithelial Cells Few/LPF Urine Bacteria Few/HPF (0-FEW) Influenza Type A Antigen Negative (NEGATIVE) Influenza Type B Antigen Negative (NEGATIVE) White Blood Count 7.9x10^3/uL (4.0-11.0) Red Blood Count 4.87x10^6/uL (3.50-5.40) Hemoglobin 13.3g/dL (12.0-15.5) Hematocrit 40.9% (36.0-47.0) Mean Corpuscular Volume 84fL (79-100) Mean Corpuscular Hemoglobin 27pg (25-35) Mean Corpuscular Hemoglobin Concent 33g/dL (31-37) Red Cell Distribution Width 14.3% (11.5-14.5) Platelet Count 195x10^3/uL (140-400) Neutrophils (%) (Auto) 80% (31-73) Lymphocytes (%) (Auto) 15% (24-48) Monocytes (%) (Auto) 3% (0-9) Eosinophils (%) (Auto) 1% (0-3) Basophils (%) (Auto) 0% (0-3) Neutrophils # (Auto) 6.3x10^3uL (1.8-7.7) Lymphocytes # (Auto) 1.2x10^3/uL (1.0-4.8) Monocytes # (Auto) 0.3x10^3/uL (0.0-1.1) Eosinophils # (Auto) 0.1x10^3/uL (0.0-0.7) Basophils # (Auto) 0.0x10^3/uL (0.0-0.2) Sodium Level 141mmol/L (136-145) Potassium Level 4.4mmol/L (3.5-5.1) Chloride Level 104mmol/L (98-107) Carbon Dioxide Level 23mmol/L (21-32) Anion Gap 14 (6-14) Blood Urea Nitrogen 17mg/dL (7-20) Creatinine 0.8mg/dL (0.6-1.0) Estimated GFR (Cockcroft-Gault) 70.7 BUN/Creatinine Ratio 21 (6-20) Glucose Level 193mg/dL (70-99) Calcium Level 9.2mg/dL (8.5-10.1) Total Bilirubin 0.3mg/dL (0.2-1.0) Aspartate Amino Transf (AST/SGOT) 25U/L (15-37) Alanine Aminotransferase (ALT/SGPT) 33U/L (14-59) Alkaline Phosphatase 98U/L (46-116) Creatine Kinase 98U/L (26-192) Creatine Kinase MB (Mass) 1.3ng/mL (0.0-3.6) Creatine Kinase MB Relative Index 1.3% (0-4) Troponin I Quantitative < 0.017ng/mL (0.000-0.055) KM-Enr-U-Type Natriuretic Peptide 35pg/mL (0-124) Total Protein 8.2g/dL (6.4-8.2) Albumin 3.5g/dL (3.4-5.0) Albumin/Globulin Ratio 0.7 (1.0-1.7) Glucose (Fingerstick) 232mg/dL (70-99) 298mg/dL (70-99) Test 01/06/17 03:08 01/06/17 07:26 01/06/17 11:53 01/06/17 17:00 White Blood Count 5.4x10^3/uL (4.0-11.0) Red Blood Count 4.47x10^6/uL (3.50-5.40) Hemoglobin 12.1g/dL (12.0-15.5) Hematocrit 36.7% (36.0-47.0) Mean Corpuscular Volume 82fL (79-100) Mean Corpuscular Hemoglobin 27pg (25-35) Mean Corpuscular Hemoglobin Concent 33g/dL (31-37) Red Cell Distribution Width 15.0% (11.5-14.5) Platelet Count 194x10^3/uL (140-400) Neutrophils (%) (Auto) 76% (31-73) Lymphocytes (%) (Auto) 21% (24-48) Monocytes (%) (Auto) 3% (0-9) Eosinophils (%) (Auto) 0% (0-3) Basophils (%) (Auto) 0% (0-3) Neutrophils # (Auto) 4.2x10^3uL (1.8-7.7) Lymphocytes # (Auto) 1.2x10^3/uL (1.0-4.8) Monocytes # (Auto) 0.1x10^3/uL (0.0-1.1) Eosinophils # (Auto) 0.0x10^3/uL (0.0-0.7) Basophils # (Auto) 0.0x10^3/uL (0.0-0.2) Sodium Level 137mmol/L (136-145) Potassium Level 4.2mmol/L (3.5-5.1) Chloride Level 104mmol/L (98-107) Carbon Dioxide Level 24mmol/L (21-32) Anion Gap 9 (6-14) Blood Urea Nitrogen 17mg/dL (7-20) Creatinine 0.9mg/dL (0.6-1.0) Estimated GFR (Cockcroft-Gault) 61.7 Glucose Level 291mg/dL (70-99) Hemoglobin A1c 7.3% (4.8-5.6) Calcium Level 8.9mg/dL (8.5-10.1) Glucose (Fingerstick) 265mg/dL (70-99) 381mg/dL (70-99) 280mg/dL (70-99) Test 01/06/17 20:45 01/07/17 07:26 Glucose (Fingerstick) 303mg/dL (70-99) 271mg/dL (70-99) Laboratory Tests Test 01/06/17 11:53 01/06/17 17:00 01/06/17 20:45 01/07/17 07:26 Glucose (Fingerstick) 381mg/dL (70-99) 280mg/dL (70-99) 303mg/dL (70-99) 271mg/dL (70-99) Medications Active Scripts Medications Dose Route/Sig Days Date Category Vitamin D3 (Cholecalciferol (Vitamin D3)) 1,000 Unit Tablet 1 Tab PO DAILY 01/05/17 Reported Aspir 81 (Aspirin) 81 Mg Tablet.dr 1 Tab PO DAILY 01/05/17 Reported Levaquin (Levofloxacin) 750 Mg Tablet 500 Mg PO DAILY06 05/15/16 Rx Tradjenta (Linagliptin) 5 Mg Tablet 5 Mg PO DAILY 05/15/16 Rx Omeprazole 20 Mg Capsule.dr 1 Cap PO DAILYAC 05/12/16 Reported Amlodipine Besylate 5 Mg Tablet 5 Mg PO DAILY 05/12/16 Reported Lisinopril 20 Mg Tablet 1 Tab PO DAILY 05/12/16 Reported Ibuprofen 800 Mg Tablet 800 Mg PO PRN Q8HRS PRN 05/12/16 Reported Ventolin Hfa Inhaler (Albuterol Sulfate) 18 Gm Hfa.aer.ad 2 Puff INH Q4HRS 05/12/16 Reported Impression . 1. Acute bronchitis, but no definite consolidation seen on the chest x-ray. 2. 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 No further workup is needed. 3. Possible adult onset reactivate airway disease with mild exacerbation, triggered by viral bronchitis. Plan . 1. Continue with present bronchodilators. 2. Taper steroids. 3. Continue empiric antibiotic. 4. Cough suppressants. 5. If the cough does not resolve after few weeks, then one should consider the effect of lisinopril which currently she is on. She could be discharged today VERNON OCAMPO MD Jan 07, 2017 08:58
[2017-01-07] MEDS: methylPREDNISolone SOD SUCC PF 40 MG/ML VIAL. IV SCH ×2 (10:15→17:12)
--- NOTE | 2017-01-07 10:44 | PDOC ---
PROGRESS NOTES Subjective Subjective Pt awake and alert. States breathing is less labored. States she does not want to take any more insulin. Pt states she has been eating and drinking well. Denies n/v/d. Objective Objective Pt awake and alert. NAD. VSS. Afebrile. FSBS elevated. Lungs with exp wheeze throughout. Pt on RA, not requiring supplemental O2. Heart with RRR. No murmurs. Vital Signs Date Time Temp Pulse Resp B/P Pulse Ox O2 Delivery O2 Flow Rate FiO2 01/07/17 08:58 82 170/80 01/07/17 07:57 94 Room Air 01/07/17 07:00 97.5 20 2.0 97.5 Intake and Output 01/07/17 07:00 Intake Total 1500 ml Balance 1500 ml Intake Oral 1500 ml # Voids 7 Assessment Assessment Problems Medical Problems: (1) Acute respiratory distress Status: Acute (2) Diabetes mellitus Status: Acute (3) Hypoxia Status: Acute Plan Plan of Care 1. Acute bronchitis with exaccerbation of asthma -Pulmonology consulting -Pt on Duonebs, SoluMedrol and empiric Levaquin 2. DM, noninsulin dependent -Pt on Trajenta -Hgb A1c 7.3 -FSBS elevated with admission in upper 200s, probable secondary to steroids -Pt refusing Novolog Nursing staff encouraged to begin to mobilize pt. Hopeful for Dc tomorrow am. Comment Review of Relevant I have reviewed the following items jose (where applicable) has been applied. Labs Laboratory Tests Test 01/05/17 12:45 01/05/17 12:50 01/05/17 16:23 01/05/17 20:53 Urine Collection Type Unknown Urine Color Yellow Urine Clarity Clear Urine pH 5.5 Urine Specific [place] 1.010 Urine Protein 100mg/dL (NEG-TRACE) Urine Glucose (UA) Negativemg/dL (NEG) Urine Ketones (Stick) Negativemg/dL (NEG) Urine Blood Large (NEG) Urine Nitrite Negative (NEG) Urine Bilirubin Negative (NEG) Urine Urobilinogen Dipstick 0.2mg/dL (0.2 mg/dL) Urine Leukocyte Esterase Negative (NEG) Urine RBC 6-10/HPF (0-2) Urine WBC 1-4/HPF (0-4) Urine Squamous Epithelial Cells Few/LPF Urine Bacteria Few/HPF (0-FEW) Influenza Type A Antigen Negative (NEGATIVE) Influenza Type B Antigen Negative (NEGATIVE) White Blood Count 7.9x10^3/uL (4.0-11.0) Red Blood Count 4.87x10^6/uL (3.50-5.40) Hemoglobin 13.3g/dL (12.0-15.5) Hematocrit 40.9% (36.0-47.0) Mean Corpuscular Volume 84fL (79-100) Mean Corpuscular Hemoglobin 27pg (25-35) Mean Corpuscular Hemoglobin Concent 33g/dL (31-37) Red Cell Distribution Width 14.3% (11.5-14.5) Platelet Count 195x10^3/uL (140-400) Neutrophils (%) (Auto) 80% (31-73) Lymphocytes (%) (Auto) 15% (24-48) Monocytes (%) (Auto) 3% (0-9) Eosinophils (%) (Auto) 1% (0-3) Basophils (%) (Auto) 0% (0-3) Neutrophils # (Auto) 6.3x10^3uL (1.8-7.7) Lymphocytes # (Auto) 1.2x10^3/uL (1.0-4.8) Monocytes # (Auto) 0.3x10^3/uL (0.0-1.1) Eosinophils # (Auto) 0.1x10^3/uL (0.0-0.7) Basophils # (Auto) 0.0x10^3/uL (0.0-0.2) Sodium Level 141mmol/L (136-145) Potassium Level 4.4mmol/L (3.5-5.1) Chloride Level 104mmol/L (98-107) Carbon Dioxide Level 23mmol/L (21-32) Anion Gap 14 (6-14) Blood Urea Nitrogen 17mg/dL (7-20) Creatinine 0.8mg/dL (0.6-1.0) Estimated GFR (Cockcroft-Gault) 70.7 BUN/Creatinine Ratio 21 (6-20) Glucose Level 193mg/dL (70-99) Calcium Level 9.2mg/dL (8.5-10.1) Total Bilirubin 0.3mg/dL (0.2-1.0) Aspartate Amino Transf (AST/SGOT) 25U/L (15-37) Alanine Aminotransferase (ALT/SGPT) 33U/L (14-59) Alkaline Phosphatase 98U/L (46-116) Creatine Kinase 98U/L (26-192) Creatine Kinase MB (Mass) 1.3ng/mL (0.0-3.6) Creatine Kinase MB Relative Index 1.3% (0-4) Troponin I Quantitative < 0.017ng/mL (0.000-0.055) XU-Rwl-U-Type Natriuretic Peptide 35pg/mL (0-124) Total Protein 8.2g/dL (6.4-8.2) Albumin 3.5g/dL (3.4-5.0) Albumin/Globulin Ratio 0.7 (1.0-1.7) Glucose (Fingerstick) 232mg/dL (70-99) 298mg/dL (70-99) Test 01/06/17 03:08 01/06/17 07:26 01/06/17 11:53 01/06/17 17:00 White Blood Count 5.4x10^3/uL (4.0-11.0) Red Blood Count 4.47x10^6/uL (3.50-5.40) Hemoglobin 12.1g/dL (12.0-15.5) Hematocrit 36.7% (36.0-47.0) Mean Corpuscular Volume 82fL (79-100) Mean Corpuscular Hemoglobin 27pg (25-35) Mean Corpuscular Hemoglobin Concent 33g/dL (31-37) Red Cell Distribution Width 15.0% (11.5-14.5) Platelet Count 194x10^3/uL (140-400) Neutrophils (%) (Auto) 76% (31-73) Lymphocytes (%) (Auto) 21% (24-48) Monocytes (%) (Auto) 3% (0-9) Eosinophils (%) (Auto) 0% (0-3) Basophils (%) (Auto) 0% (0-3) Neutrophils # (Auto) 4.2x10^3uL (1.8-7.7) Lymphocytes # (Auto) 1.2x10^3/uL (1.0-4.8) Monocytes # (Auto) 0.1x10^3/uL (0.0-1.1) Eosinophils # (Auto) 0.0x10^3/uL (0.0-0.7) Basophils # (Auto) 0.0x10^3/uL (0.0-0.2) Sodium Level 137mmol/L (136-145) Potassium Level 4.2mmol/L (3.5-5.1) Chloride Level 104mmol/L (98-107) Carbon Dioxide Level 24mmol/L (21-32) Anion Gap 9 (6-14) Blood Urea Nitrogen 17mg/dL (7-20) Creatinine 0.9mg/dL (0.6-1.0) Estimated GFR (Cockcroft-Gault) 61.7 Glucose Level 291mg/dL (70-99) Hemoglobin A1c 7.3% (4.8-5.6) Calcium Level 8.9mg/dL (8.5-10.1) Glucose (Fingerstick) 265mg/dL (70-99) 381mg/dL (70-99) 280mg/dL (70-99) Test 01/06/17 20:45 01/07/17 07:26 Glucose (Fingerstick) 303mg/dL (70-99) 271mg/dL (70-99) Laboratory Tests Test 01/06/17 11:53 01/06/17 17:00 01/06/17 20:45 01/07/17 07:26 Glucose (Fingerstick) 381mg/dL (70-99) 280mg/dL (70-99) 303mg/dL (70-99) 271mg/dL (70-99) Medications Current Medications Albuterol/ Ipratropium (Duoneb) 6 ml 1X ONCE NEB Last administered on 12:55; Start 01/05/17 at 13:00; Stop 01/05/17 at 13:01; Status DC Ondansetron HCl 4 mg 4 mg PRN Q8HRS PRN IV NAUSEA/VOMITING; Start 01/05/17 at 15 :45; Stop 01/06/17 at 15:44; Status DC Sodium Chloride (Iv Sodium Chloride 0.9% 1000ml Bag) 1,000 ml @ 100 mls/hr Q10H IV Last administered on 01/06/17 02:00; Start 01/05/17 at 16:00; Stop at 08:14; Status DC Albuterol/ Ipratropium (Duoneb) 3 ml RTQID NEB Last administered on 01/06/17 11 :40; Start 01/05/17 at 16:00; Stop 01/06/17 at 15:59; Status DC Methylprednisolone Sodium Succinate (Solu-Medrol 40mg Vial) 60 mg Q6HRS IV Last administered on 01/06/17 05:21; Start 01/05/17 at 18:00; Stop 01/06/17 at 08: 06; Status DC Fentanyl Citrate (Fentanyl 2ml Vial) 50 mcg PRN Q2HR PRN IV PAIN Last administered on 01/05/17 15:53; Start 01/05/17 at 15:45; Stop 01/06/17 at 15:44; Status DC Insulin Aspart (Novolog) 0-9 UNITS TIDWMEALS SQ Last administered on 01/07/17 08:13; Start 01/05/17 at 18:00 Dextrose 12.5 gm PRN Q15MIN PRN IV SEE COMMENTS; Start 01/05/17 at 17:30 Amlodipine Besylate (Norvasc) 5 mg DAILY PO Last administered on 01/07/17 08:57 ; Start 01/05/17 at 21:00 Aspirin (Ecotrin) 81 mg DAILY PO Last administered on 01/07/17 08:56; Start 01/06/17 at 09:00 Vitamin D (Vitamin D3) 1,000 unit DAILY PO Last administered on 01/07/17 08:58 ; Start 01/06/17 at 09:00 Linagliptin (Tradjenta) 5 mg DAILY PO Last administered on 01/07/17 08:58; Start 01/06/17 at 09:00 Lisinopril (Prinivil) 20 mg DAILY PO Last administered on 01/07/17 08:58; Start 01/05/17 at 21:00 Pantoprazole Sodium (Protonix) 40 mg DAILYAC PO Last administered on 01/07/17 08:10; Start 01/06/17 at 07:30 Insulin Aspart (Novolog) 8 units 1X ONCE SQ Last administered on 01/05/17 21: 45; Start 01/05/17 at 22:00; Stop 01/05/17 at 22:01; Status DC Methylprednisolone Sodium Succinate (Solu-Medrol 40mg Vial) 60 mg BIDAFTMEAL IV Last administered on 01/07/17 10:15; Start 01/06/17 at 18:00 Albuterol/ Ipratropium (Duoneb) 3 ml RTQID NEB Last administered on 01/07/17 07 :55; Start 01/06/17 at 16:00 Levofloxacin (Levaquin) 500 mg DAILY06 PO Last administered on 01/07/17 05:51; Start 01/06/17 at 09:00 Insulin Detemir (Levemir) 20 units 1X ONCE SQ Last administered on 01/06/17 09 :11; Start 01/06/17 at 08:30; Stop 01/06/17 at 08:31; Status DC Insulin Aspart (Novolog) 15 units 1X STAT SQ Last administered on 01/06/17 13: 58; Start 01/06/17 at 13:58; Stop 01/06/17 at 14:03; Status DC Clonidine HCl (Catapres) 0.1 mg 1X ONCE PO Last administered on 01/06/17 17:22 ; Start 01/06/17 at 16:45; Stop 01/06/17 at 16:46; Status DC Clonidine HCl (Catapres) 0.1 mg PRN Q6HRS PRN PO HYPERTENSION, SEE COMMENTS; Start 01/06/17 at 16:30 Active Scripts Active Levaquin (Levofloxacin) 750 Mg Tablet 500 Mg PO DAILY06 Tradjenta (Linagliptin) 5 Mg Tablet 5 Mg PO DAILY Reported Vitamin D3 (Cholecalciferol (Vitamin D3)) 1,000 Unit Tablet 1 Tab PO DAILY Aspir 81 (Aspirin) 81 Mg Tablet.dr 1 Tab PO DAILY Omeprazole 20 Mg Capsule.dr 1 Cap PO DAILYAC Amlodipine Besylate 5 Mg Tablet 5 Mg PO DAILY Lisinopril 20 Mg Tablet 1 Tab PO DAILY Ibuprofen 800 Mg Tablet 800 Mg PO PRN Q8HRS PRN Ventolin Hfa Inhaler (Albuterol Sulfate) 18 Gm Hfa.aer.ad 2 Puff INH Q4HRS Vitals/I & O Vital Sign - Last 24 Hours 01/06/17 01/06/17 01/06/17 01/06/17 11:00 11:41 15:00 16:10 Temp 96.3 98.8 96.3 98.8 Pulse 93 89 Resp 21 22 B/P 184/86 189/82 Pulse Ox 95 94 O2 Delivery Nasal Cannula Room Air Nasal Cannula Room Air O2 Flow Rate 2.0 2.0 01/06/17 01/06/17 01/06/17 01/06/17 17:22 17:30 19:28 19:42 Temp 97.7 97.7 Pulse 89 84 Resp 16 B/P 189/82 175/83 176/68 Pulse Ox 93 O2 Delivery Room Air Room Air 01/06/17 01/06/17 01/07/17 01/07/17 20:00 23:04 03:17 07:00 Temp 97.9 96.3 97.5 97.9 96.3 97.5 Pulse 87 82 84 Resp 16 16 20 B/P 159/70 170/80 154/82 Pulse Ox 95 94 92 O2 Delivery Room Air Room Air BiPAP/CPAP Nasal Cannula O2 Flow Rate 2.0 2.0 01/07/17 01/07/17 01/07/17 07:57 08:57 08:58 Pulse 82 82 B/P 170/80 170/80 Pulse Ox 94 O2 Delivery Room Air Intake and Output 01/06/17 01/06/17 01/07/17 15:00 23:00 07:00 Intake Total 500 ml 1000 ml Balance 500 ml 1000 ml AUNG DIETRICH MD Jan 07, 2017 10:44
[2017-01-07 11:00] VITALS: BP 175/76
[2017-01-07 15:00] VITALS: BP 160/69
[2017-01-07 19:45] VITALS: BP 207/81
[2017-01-07 23:53] VITALS: BP 187/75
[2017-01-08 03:36] VITALS: BP 170/82
[2017-01-08] MEDS: LEVOFLOXACIN 500 MG TABLET PO SCH (05:38)
[2017-01-08 07:10] VITALS: BP 187/90
[2017-01-08] MEDS: IPRATRPIUM/ALBUTEROL 0.5/2.5MG 3 ML NEBU. NEB SCH ×2 (07:28→12:00)
[2017-01-08] MEDS: PANTOPRAZOLE 40 MG TABLET. PO SCH (08:42)
[2017-01-08] MEDS: methylPREDNISolone SOD SUCC PF 40 MG/ML VIAL. IV SCH (08:42)
[2017-01-08] MEDS: ASPIRIN ENTERIC COATED 81 MG TABLET.DR. PO SCH (08:43)
[2017-01-08] MEDS: AMLODIPINE BESYLATE 5 MG TABLET PO SCH (08:43)
[2017-01-08] MEDS: LINAGLIPTIN 5 MG TABLET PO SCH (08:44)
[2017-01-08] MEDS: LISINOPRIL 20 MG TABLET PO SCH (08:44)
[2017-01-08] MEDS: CHOLECALCIFEROL (VITAMIN D3) 1,000 UNIT TABLET PO SCH (08:45)
[2017-01-08] MEDS ORDERED: DOXY100C14 PO (09:34)
[2017-01-08] MEDS ORDERED: PRED20TA PO (09:34)
--- NOTE | 2017-01-08 09:34 | PDOC ---
PROGRESS NOTES Subjective Subjective Pt awake and pleasant this am. States she is feeling better. Denies pain. States she has been eating and drinking well with good output. Objective Objective Pt awake and alert. NAD. VSS, BP elevated this am. Afebrile. Lungs with loose rhonchi and expiratory wheeze. Resp even and unlabored. Pt on RA, not requiring supplemental O2. Vital Signs Date Time Temp Pulse Resp B/P Pulse Ox O2 Delivery O2 Flow Rate FiO2 01/08/17 08:44 86 187/90 01/08/17 07:29 94 Room Air 01/08/17 07:10 97.9 18 97.9 01/07/17 20:00 2.0 Intake and Output 01/08/17 07:00 Intake Total 2400 ml Balance 2400 ml Intake Oral 2400 ml # Voids 7 Assessment Assessment Problems Medical Problems: (1) Acute respiratory distress Status: Acute (2) Diabetes mellitus Status: Acute (3) Hypoxia Status: Acute Plan Plan of Care 1. Acute bronchitis with exacerbation of asthma -Pulmonology consulting -Pt on Duonebs, SoluMedrol and empiric Levaquin 2. DM, noninsulin dependent -Pt on Trajenta -Hgb A1c 7.3 -FSBS elevated with admission in upper 200s, probable secondary to steroids -Pt refusing Novolog Dc pt home today. Resume previous home medications with addition of Prednisone taper x9 days and Doxy bid x 10d. ADA diet. Activity as tolerated. Pt to f/u in our office in 1 week ([phone]). Comment Review of Relevant I have reviewed the following items jose (where applicable) has been applied. Labs Laboratory Tests Test 01/06/17 11:53 01/06/17 17:00 01/06/17 20:45 01/07/17 07:26 Glucose (Fingerstick) 381mg/dL (70-99) 280mg/dL (70-99) 303mg/dL (70-99) 271mg/dL (70-99) Medications Current Medications Albuterol/ Ipratropium (Duoneb) 6 ml 1X ONCE NEB Last administered on t 12:55; Start 01/05/17 at 13:00; Stop 01/05/17 at 13:01; Status DC Ondansetron HCl 4 mg 4 mg PRN Q8HRS PRN IV NAUSEA/VOMITING; Start 01/05/17 at 15 :45; Stop 01/06/17 at 15:44; Status DC Sodium Chloride (Iv Sodium Chloride 0.9% 1000ml Bag) 1,000 ml @ 100 mls/hr Q10H IV Last administered on 01/06/17 02:00; Start 01/05/17 at 16:00; Stop at 08:14; Status DC Albuterol/ Ipratropium (Duoneb) 3 ml RTQID NEB Last administered on 01/06/17 11 :40; Start 01/05/17 at 16:00; Stop 01/06/17 at 15:59; Status DC Methylprednisolone Sodium Succinate (Solu-Medrol 40mg Vial) 60 mg Q6HRS IV Last administered on 01/06/17 05:21; Start 01/05/17 at 18:00; Stop 01/06/17 at 08: 06; Status DC Fentanyl Citrate (Fentanyl 2ml Vial) 50 mcg PRN Q2HR PRN IV PAIN Last administered on 01/05/17 15:53; Start 01/05/17 at 15:45; Stop 01/06/17 at 15:44; Status DC Insulin Aspart (Novolog) 0-9 UNITS TIDWMEALS SQ Last administered on 01/07/17 08:13; Start 01/05/17 at 18:00; Stop 01/07/17 at 11:28; Status DC Dextrose 12.5 gm PRN Q15MIN PRN IV SEE COMMENTS; Start 01/05/17 at 17:30 Amlodipine Besylate (Norvasc) 5 mg DAILY PO Last administered on 01/08/17 08: 43; Start 01/05/17 at 21:00 Aspirin (Ecotrin) 81 mg DAILY PO Last administered on 01/08/17 08:43; Start at 09:00 Vitamin D (Vitamin D3) 1,000 unit DAILY PO Last administered on 01/08/17 08:45 ; Start 01/06/17 at 09:00 Linagliptin (Tradjenta) 5 mg DAILY PO Last administered on 01/08/17 08:44; Start 01/06/17 at 09:00 Lisinopril (Prinivil) 20 mg DAILY PO Last administered on 01/08/17 08:44; Start 01/05/17 at 21:00 Pantoprazole Sodium (Protonix) 40 mg DAILYAC PO Last administered on 01/08/17 08:42; Start 01/06/17 at 07:30 Insulin Aspart (Novolog) 8 units 1X ONCE SQ Last administered on 01/05/17 21: 45; Start 01/05/17 at 22:00; Stop 01/05/17 at 22:01; Status DC Methylprednisolone Sodium Succinate (Solu-Medrol 40mg Vial) 60 mg BIDAFTMEAL IV Last administered on 01/08/17 08:42; Start 01/06/17 at 18:00 Albuterol/ Ipratropium (Duoneb) 3 ml RTQID NEB Last administered on 01/08/17 07:28; Start 01/06/17 at 16:00 Levofloxacin (Levaquin) 500 mg DAILY06 PO Last administered on 01/08/17 05:38 ; Start 01/06/17 at 09:00 Insulin Detemir (Levemir) 20 units 1X ONCE SQ Last administered on 01/06/17 09 :11; Start 01/06/17 at 08:30; Stop 01/06/17 at 08:31; Status DC Insulin Aspart (Novolog) 15 units 1X STAT SQ Last administered on 01/06/17 13: 58; Start 01/06/17 at 13:58; Stop 01/06/17 at 14:03; Status DC Clonidine HCl (Catapres) 0.1 mg 1X ONCE PO Last administered on 01/06/17 17:22 ; Start 01/06/17 at 16:45; Stop 01/06/17 at 16:46; Status DC Clonidine HCl (Catapres) 0.1 mg PRN Q6HRS PRN PO HYPERTENSION, SEE COMMENTS; Start 01/06/17 at 16:30 Active Scripts Active Levaquin (Levofloxacin) 750 Mg Tablet 500 Mg PO DAILY06 Tradjenta (Linagliptin) 5 Mg Tablet 5 Mg PO DAILY Reported Vitamin D3 (Cholecalciferol (Vitamin D3)) 1,000 Unit Tablet 1 Tab PO DAILY Aspir 81 (Aspirin) 81 Mg Tablet. 1 Tab PO DAILY Omeprazole 20 Mg Capsule. 1 Cap PO DAILYAC Amlodipine Besylate 5 Mg Tablet 5 Mg PO DAILY Lisinopril 20 Mg Tablet 1 Tab PO DAILY Ibuprofen 800 Mg Tablet 800 Mg PO PRN Q8HRS PRN Ventolin Hfa Inhaler (Albuterol Sulfate) 18 Gm Hfa.aer.ad 2 Puff INH Q4HRS Vitals/I & O Vital Sign - Last 24 Hours 01/07/17 01/07/17 01/07/17 01/07/17 11:00 12:02 15:00 16:07 Temp 96.6 96.6 96.6 96.6 Pulse 101 79 Resp 22 20 B/P 175/76 160/69 Pulse Ox 94 92 O2 Delivery Room Air Room Air Room Air Room Air 01/07/17 01/07/17 01/07/17 01/07/17 19:45 19:52 20:00 23:53 Temp 98.1 97.9 98.1 97.9 Pulse 102 90 Resp 18 B/P 207/81 187/75 Pulse Ox 94 96 95 O2 Delivery Room Air Room Air Room Air Room Air O2 Flow Rate 2.0 01/08/17 01/08/17 01/08/17 01/08/17 03:36 07:10 07:29 08:43 Temp 97.7 97.9 97.7 97.9 Pulse 85 86 86 Resp 16 18 B/P 170/82 187/90 187/90 Pulse Ox 94 93 94 O2 Delivery Room Air Room Air Room Air 01/08/17 08:44 Pulse 86 B/P 187/90 Intake and Output 01/07/17 01/07/17 01/08/17 15:00 23:00 07:00 Intake Total 650 ml 1750 ml Balance 650 ml 1750 ml AUNG DIETRICH MD Jan 08, 2017 09:34
--- NOTE | 2017-01-08 09:50 | PDOC ---
PULMONARY PROGRESS NOTES Subjective less cough, feels better Vitals Vital Signs Date Time Temp Pulse Resp B/P Pulse Ox O2 Delivery O2 Flow Rate FiO2 01/08/17 08:44 86 187/90 01/08/17 07:29 94 Room Air 01/08/17 07:10 97.9 18 97.9 01/07/17 20:00 2.0 General: Alert, Oriented X4, No acute distress Lungs: Other (decrease bs) Cardiovascular: S1, S2 Abdomen: Soft, Non-tender Extremities: No Edema Skin: Warm Labs Laboratory Tests Test 01/06/17 11:53 01/06/17 17:00 01/06/17 20:45 01/07/17 07:26 Glucose (Fingerstick) 381mg/dL (70-99) 280mg/dL (70-99) 303mg/dL (70-99) 271mg/dL (70-99) Medications Active Scripts Medications Dose Route/Sig Days Date Category Vitamin D3 (Cholecalciferol (Vitamin D3)) 1,000 Unit Tablet 1 Tab PO DAILY 01/05/17 Reported Aspir 81 (Aspirin) 81 Mg Tablet.dr 1 Tab PO DAILY 01/05/17 Reported Levaquin (Levofloxacin) 750 Mg Tablet 500 Mg PO DAILY06 05/15/16 Rx Tradjenta (Linagliptin) 5 Mg Tablet 5 Mg PO DAILY 05/15/16 Rx Omeprazole 20 Mg Capsule.dr 1 Cap PO DAILYAC 05/12/16 Reported Amlodipine Besylate 5 Mg Tablet 5 Mg PO DAILY 05/12/16 Reported Lisinopril 20 Mg Tablet 1 Tab PO DAILY 05/12/16 Reported Ibuprofen 800 Mg Tablet 800 Mg PO PRN Q8HRS PRN 05/12/16 Reported Ventolin Hfa Inhaler (Albuterol Sulfate) 18 Gm Hfa.aer.ad 2 Puff INH Q4HRS 05/12/16 Reported Impression . 1. Acute bronchitis, but no definite consolidation seen on the chest x-ray. 2. 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 No further workup is needed. 3. Possible adult onset reactivate airway disease with mild exacerbation, triggered by viral bronchitis. Plan . 1. Continue with present bronchodilators. 2. Taper steroids. 3. Continue empiric antibiotic. 4. Cough suppressants. 5. ok with dc today VERNON OCAMPO MD Jan 08, 2017 09:50
[2017-01-08 10:22] VITALS: BP 192/78
--- NOTE | 2017-01-08 20:22 | DS ---
DATE OF DISCHARGE: 01/08/2017 DISCHARGE DIAGNOSES: 1. Acute bronchitis with exacerbation of asthma. 2. Diabetes mellitus with hyperglycemic changes with current illness. HISTORY OF PRESENT ILLNESS: This is a 71-year-old female who is well known to me from followup in the clinic. The patient presented to the Emergency Room on the day of admission with complaints of increased shortness of breath and a productive cough. The patient was seen in our clinic the day prior to presenting to the Emergency Room and was started on Levaquin and prednisone. The patient had no improvement and in fact her signs and symptoms gradually worsened. Upon evaluation in the Emergency Room, the patient was found to be hypoxic with O2 saturation of 88% and DuoNeb treatment was administered. The patient remained hypoxic and required supplemental oxygen. EKG was done which showed no acute ST or T-wave changes. A chest x-ray showed no acute abnormality. Laboratory findings were relatively within normal limits. Due to the patient's continued hypoxia, the patient was admitted to the hospital for further evaluation and treatment. SUMMARY OF STAY: Upon admission, Pulmonology was consulted. The patient was given DueNebs unscheduled, was started on Solu-Medrol IV and was given empiric Levaquin. The patient's fingerstick blood sugars did gradually increase, this was thought to be secondary to the dosing of steroids. NovoLog was ordered; however, the patient denied dosing of this. The patient was continued on her p.o. Tradjenta. Hemoglobin A1c revealed 7.3, which shows that the patient's diabetes was pretty well controlled on an outpatient basis prior to the acute illness and dosing of steroids. Over the length of the patient's stay, her signs and symptoms did gradually improve. On the day of discharge, the patient did have some loose rhonchi throughout. Her lung had mild expiratory wheeze. She was on room air, requiring no supplemental oxygen and was able to talk in complete sentences without signs and symptoms of shortness of breath. DIET: ADA. ACTIVITY: As tolerated. DISCHARGE MEDICATIONS: The patient will resume her previous home medications with the addition of prednisone taper x 9 days and doxycycline b.i.d. x 10 days. FOLLOWUP: The patient is to follow up in our clinic in 1 week, sooner if her signs and symptoms indicate. The patient stated understanding of the above discharge summary, denied questions, and will follow up accordingly. AUNG DIETRICH MD DR: John JOB#: [id number] / [id number]
== END 2017-01-08 15:10 | disposition home or self-care (01) | DRG 189 ==
LOC: ER 11:54 → 5 NORTH 14:22
PROVIDERS: ADMIT Family Medicine; ATTEND Family Medicine
PROC: 5A09357 Assistance with Respiratory Ventilation, Less than 24 Consecutive Hours, Continuous Positive Airway Pressure (ICD-10-PCS; principal; 2017-01-07)
DX: J96.01 Acute respiratory failure with hypoxia (principal); J45.901 Unspecified asthma with (acute) exacerbation; J20.9 Acute bronchitis, unspecified; E03.9 Hypothyroidism, unspecified; Z90.49 Acquired absence of other specified parts of digestive tract; E11.65 Type 2 diabetes mellitus with hyperglycemia; E66.01 Morbid (severe) obesity due to excess calories; G47.33 Obstructive sleep apnea (adult) (pediatric); I10 Essential (primary) hypertension; I70.0 Atherosclerosis of aorta; K21.9 Gastro-esophageal reflux disease without esophagitis; Z87.891 Personal history of nicotine dependence; Z88.0 Allergy status to penicillin; Z88.8 Allergy status to other drugs, medicaments and biological substances; Z79.899 Other long term (current) drug therapy; Z79.82 Long term (current) use of aspirin
CPT/HCPCS: 36415; 71020; 80048; 80053; 81001; 82553; 82947; 83036; 83880; 84484; 85027; 87804; 93005; 94250; 94640; 94760; 96374; J1815; J2920; J3010; J7030; J7620; 99285-25

== ENCOUNTER → 2019-05-02 | Outpatient (CLI) | payer MEDICARE ==
[~2019-05-02] MED LIST changes: +AMLO5TAB10 PO; -AMLO5TAB2 PO; +ASPI-482 PO; +CHOL10003 PO; +DOXY100C14 PO; +OMEP20CA10 PO; -OMEP20CA9 PO; +PRED20TA PO
--- NOTE | 2019-05-03 10:10 | RAD ---
DATE: 05/02/2019 EXAM: MAMMO GIO SCREENING BILATERAL HISTORY: Routine evaluation. Baseline exam. COMPARISON: None This study was interpreted with the benefit of Computerized Aided Detection (CAD). Breast Density: HETERO The breast parenchyma is heterogenously dense, which could reduce sensitivity of mammography. Breast parenchyma level C. FINDINGS: A well-circumscribed mass measuring 0.8 cm diameter is present at the inner aspect of the posterior left breast 10 cm from the nipple. No suspicious calcifications or distortion. IMPRESSION: Limited ultrasound of the left breast is recommended at the 9:00 C position. BI-RADS CATEGORY: 0 INCOMPLETE: NEEDS ADDITIONAL IMAGING EVALUATION AND/OR PRIOR MAMMOGRAMS FOR COMPARISON. RECOMMENDED FOLLOW-UP: ADD ADDITIONAL IMAGING PQRS compliance statement: Patient information was entered into a reminder system with a target due date pending ultrasound results for the next mammogram. Mammography is a sensitive method for finding small breast cancers, but it does not detect them all and is not a substitute for careful clinical examination. A negative mammogram does not negate a clinically suspicious finding and should not result in delay in biopsying a clinically suspicious abnormality. "Our facility is accredited by the [employer] Mammography Program."
== END | disposition home or self-care (01) ==
LOC: MAMMO 15:09
PROVIDERS: ATTEND Family Medicine
DX: Z12.31 Encounter for screening mammogram for malignant neoplasm of breast (principal); N63.20 Unspecified lump in the left breast, unspecified quadrant
CPT/HCPCS: 77063; 77067

== ENCOUNTER → 2019-05-16 | Outpatient (CLI) | payer MEDICARE ==
--- NOTE | 2019-05-16 09:01 | RAD ---
Indication: Left breast callback. TECHNIQUE: Limited left breast ultrasound. COMPARISON: Most recent mammogram from 05/02/2019. FINDINGS: At 9:00 position approximately 15 cm from the nipple there is an oval-shaped hyperechoic mass measuring 0.8 x 0.4 x 0.7 cm without internal vascularity. The mass is wider than taller without posterior enhancement or shadowing. IMPRESSION: Left breast mass corresponding to mammographically seen abnormality. While this may represent a small lipoma or other lesion of benign etiology, a malignancy is not ruled out. BI-RADS 4: Suspicious finding. Ultrasound-guided biopsy recommended. Findings were relayed to 's answering service on 05/16/2019 at 8:58 AM. Findings also discussed with patient in person. Depending on patient's preference a short-term ultrasound follow-up is also an option. Electronically signed by: Adelfo Mantilla DO (05/16/2019 8:58 AM) [facility]
== END | disposition home or self-care (01) ==
LOC: US 07:50
PROVIDERS: ATTEND Family Medicine
DX: N63.22 Unspecified lump in the left breast, upper inner quadrant (principal)
CPT/HCPCS: 76641

== ENCOUNTER → 2019-06-01 | Outpatient (CLI) | payer MEDICARE ==
--- NOTE | 2019-06-01 13:56 | RAD ---
Ultrasound-guided core biopsy of the left breast History: Left breast nodule. This is located at the 9:00 position. Procedure: The patient provided both verbal and written consent after the procedure and possible complications including bleeding and infection were explained. A timeout was performed which confirmed the name of the patient and date of and type of procedure and side of the procedure. Sonography of the left breast today demonstrates a hypoechoic nodule measuring 9 mm in size of the 10:00 position 10 cm from the nipple. This is different than the hyperechoic nodule seen at the 9:00 position 15 cm from the nipple noted previously. The hypoechoic nodule seen today most likely represents the mammographic finding. The hyperechoic nodule most likely represents a small focus of fat. Therefore, the hypoechoic nodule will be biopsied today. Appropriate skin jose on the left breast was made using ultrasound guidance. The left breast was prepped and draped in the usual sterile fashion with ChloraPrep. Total of 6 cc 1% lidocaine was utilized for local anesthesia. Using sterile technique and ultrasound guidance, a small skin vicenta was made and a 20-gauge Temno biopsy of the hypoechoic nodule was obtained. However, the Temno needle appeared to push the nodule away and therefore definite biopsy of this nodule was indeterminate. Therefore, a 14-gauge Bard needle was utilized and placed along the edge of the nodule. 2 separate biopsies were obtained. After the second biopsy, bleeding through the biopsy incision was noted. The left breast started to swell. Therefore, manual pressure was applied immediately for 10 minutes. Sonographic scanning demonstrates a hematoma and arterial flow within the region of the hematoma in the region of the biopsy. Pressure was applied for another 65 minutes and bleeding was noted on and off with persistent arterial flow still noted within the bleeding site. Following this, interventional radiology and general surgery was consulted. The patient's primary care physician Dr. Juancarlos Muniz was consulted and it was decided that the patient will be admitted to the hospital. Prior to this, the patient was sent to the emergency room for placement of IV and implementation of IV fluids and further ER evaluation in attempts to control the bleeding. Patient will be admitted to hospital for further sand bag compression and monitoring and pain control. The 3 biopsies that were obtained were placed into formalin and sent to pathology for further evaluation. As a result of the complication of bleeding from the biopsy, no biopsy clip marker was placed. Biopsies results are pending and she will be followed by the patient's physician. Spot images were performed. IMPRESSION: Ultrasound-guided core biopsy of the hypoechoic nodule of the left breast at the 10:00 position 10 cm from the nipple was performed. Biopsy results are pending. Follow-up will be with the patient's physician. The patient experienced arterial bleeding complication as a result of the biopsy and therefore the biopsy had to be stopped at this point without placement of a biopsy clip marker. Electronically signed by: Tito Oleary MD (06/01/2019 1:53 PM) [facility]
--- NOTE | 2019-06-02 16:06 | PATHOLOGY ---
[facility] Accession Number: [id number] . 01 Material submitted: . breast - LEFT BREAST MASS 10:00 10 CMFN. Modifiers: left . 01 Clinical history: . Left breast mass . 02 Diagnosis: Breast and fibroadipose tissue, left breast mass 10:00 needle biopsies: - Focal stromal fibrosis. See comment. LBQ/06/02/2019 . 02 Comment: One of the needle biopsy segments (A2) shows a focus of confluent stromal fibrosis which is sparsely cellular and contains only a few small atrophic ducts. The remaining biopsy segments consist of fibroadipose tissue. There is no evidence of malignancy in the submitted material. I am not certain as to whether or not the biopsy is truly lead customer service representative of the lesion. Correlate with mammographic findings. (JPM/db; 06/02/2019) . 02 Electronically signed: . Omar Lira MD, Pathologist NPI- [id number] . 01 Gross description: . The specimen is received in formalin, labeled "Alexsandra Bailon, 10:00 10 cm from nipple, left". Received are multiple needle cores of fibrofatty tissue measuring 0.8 x 0.6 x 0.2 cm in aggregate dimensions. The specimen is submitted entirely in cassettes A1 through A3. The cold ischemic time is 3 hours and 10 minutes. The total formalin fixation time is 9 hours and 10 minutes. (CAA; 06/01/2019) QAC/QAC . 02 Pathologist provided ICD-10: N60.32 . 02 CPT . 529453 Specimen Comment: A courtesy copy of this report has been sent to Specimen Comment: [phone], . Specimen Comment: Report sent to and Performed at: 01 [facility] [address] [facility] [address], [place] [id number] MD Donn Santacruz MD Phone: [phone] Performed at: 02 [facility] [address], [place] [id number] MD Omar Lira MD Phone: [phone]
== END | disposition home or self-care (01) ==
LOC: US 07:56
PROVIDERS: ATTEND Family Medicine
DX: N60.32 Fibrosclerosis of left breast (principal)
CPT/HCPCS: 19083; 19084; 76942; 88305